=== PATIENT | male | born 1985 | race Caucasian/White ===

== ENCOUNTER 2019-01-23 15:11 | Emergency (ER) | payer OTHER ==
[~2019-01-23] VITALS: Ht 177.8 cm; Wt 136.1 kg
[2019-01-23] MEDS ORDERED: IBUP400 (15:27)
[2019-01-23] MEDS ORDERED: IBUP800 PO (15:36)
== END 2019-01-23 15:49 | disposition home or self-care (01) ==
LOC: ER 15:11
DX: G89.29 Other chronic pain (principal); M54.5 Low back pain; E66.9 Obesity, unspecified; F17.200 Nicotine dependence, unspecified, uncomplicated
CPT/HCPCS: 96372; 99282-25; J1100; J1885